=== PATIENT | male | born 1970 | race Caucasian/White ===

== ENCOUNTER 2016-10-08 15:40 | Inpatient (IN) | payer BC ==
[~2016-10-08] VITALS: Ht 190.5 cm; Wt 122.8 kg
[2016-10-08] MEDS ORDERED: SODIUM CHLORIDE 0.9% 1,000 ML ONE (17:03)
[2016-10-08 19:40] VITALS: BP_SYST 96; RESP 18; RESP 20; TEMP 97.5
[2016-10-08] MEDS ORDERED: ALPRAZOLAM 0.25 MG TAB PO PRN (22:25)
[2016-10-08] MEDS ORDERED: ONDANSETRON 4 MG VIAL IV PUSH PRN (22:25)
[2016-10-08] MEDS ORDERED: ACETAMINOPHEN 325 MG TAB PO PRN (22:25)
[2016-10-09] VITALS (7 sets, daily range): BP systolic 81–110; RESP 16–20; TEMP 97–98.8
[2016-10-09] MEDS: PANTOPRAZOLE 40 MG VIAL IV SCH ×2 (09:00→09:45)
[2016-10-09] MEDS: LEVOTHYROXINE 0.025 MG TAB NG SCH (09:44)
[2016-10-09] MEDS: LACTULOSE SOLN 20GM/30ML UDC PO SCH ×2 (09:45→19:50)
[2016-10-09] MEDS: SEVELAMER HCL 800 MG TAB PO SCH ×3 (09:45→17:44)
[2016-10-10 03:24] VITALS: BP_SYST 95; RESP 18; TEMP 98.2
[2016-10-10] MEDS: LEVOTHYROXINE 0.025 MG TAB NG SCH (05:41)
[2016-10-10 08:12] VITALS: BP_SYST 95; RESP 20; TEMP 97.2
[2016-10-10] MEDS: SEVELAMER HCL 800 MG TAB PO SCH ×3 (08:58→17:00)
[2016-10-10] MEDS: LACTULOSE SOLN 20GM/30ML UDC PO SCH ×2 (08:59→20:18)
[2016-10-10] MEDS: PANTOPRAZOLE 40 MG VIAL IV SCH (09:01)
[2016-10-10] MEDS ORDERED: SODIUM CHLORIDE 0.9% 1,000 ML IV SCH (10:00)
[2016-10-10 11:25] VITALS: BP_SYST 86; RESP 20; TEMP 98.2
[2016-10-10 16:18] VITALS: BP_SYST 90; RESP 20; TEMP 98.4
[2016-10-10 16:21] VITALS: BP_SYST 87; RESP 20; TEMP 98.3
[2016-10-10 18:41] VITALS: Ht 190.5 cm; Wt 122.8 kg
[2016-10-10 19:22] VITALS: BP_SYST 90; RESP 20; TEMP 97.4
[2016-10-10] MEDS ORDERED: hePARIN 1,000 UNITS/ML (PORCINE) 10 ML ONE (19:23)
[2016-10-11 00:12] VITALS: BP_SYST 92; RESP 18; TEMP 97.9
[2016-10-11 03:28] VITALS: BP_SYST 88; RESP 20; TEMP 98.4
[2016-10-11] MEDS: LEVOTHYROXINE 0.025 MG TAB NG SCH (04:43)
[2016-10-11 08:22] VITALS: BP_SYST 90; RESP 20; TEMP 98.2
[2016-10-11] MEDS: SEVELAMER HCL 800 MG TAB PO SCH ×3 (09:05→18:04)
[2016-10-11] MEDS: PANTOPRAZOLE 40 MG VIAL IV SCH (09:05)
[2016-10-11] MEDS: LACTULOSE SOLN 20GM/30ML UDC PO SCH ×2 (09:05→19:54)
[2016-10-11 11:23] VITALS: BP_SYST 90; RESP 20; TEMP 98.3
[2016-10-11] MEDS ORDERED: SODIUM CHLORIDE 0.9% 1,000 ML IV SCH (15:05)
[2016-10-11] MEDS ORDERED: MIDAZOLAM 2 MG/2 ML INJ IV ONE (15:05)
[2016-10-11] MEDS ORDERED: LIDOCAINE 1% BUFFERED 1 ML SYR INTRADERM PRN (15:05)
[2016-10-11] MEDS ORDERED: GLYCOPYRROLATE 0.2 MG/ML VIAL IV ONE (15:05)
[2016-10-11 15:29] VITALS: BP_SYST 91; RESP 20; TEMP 97.9
[2016-10-11 20:16] VITALS: BP_SYST 90; RESP 18; TEMP 98.2
[2016-10-12 00:09] VITALS: BP_SYST 88; RESP 18; TEMP 97.8
[2016-10-12] MEDS: LEVOTHYROXINE 0.025 MG TAB NG SCH (06:42)
[2016-10-12] MEDS: PANTOPRAZOLE 40 MG TAB PO SCH (06:42)
[2016-10-12 06:50] VITALS: BP_SYST 98; RESP 18; TEMP 98.1
[2016-10-12] MEDS ORDERED: MIDAZOLAM 2 MG/2 ML INJ ONE (06:51)
[2016-10-12] MEDS: SEVELAMER HCL 800 MG TAB PO SCH ×3 (08:00→17:32)
[2016-10-12] MEDS ORDERED: VANCOMYCIN 1,500 MG in SODIUM CHLORIDE 0.9% 250 ML IV ONE (10:10)
[2016-10-12 11:37] VITALS: BP_SYST 92; RESP 16; TEMP 98.3
[2016-10-12] MEDS: LACTULOSE SOLN 20GM/30ML UDC PO SCH ×2 (12:35→20:19)
[2016-10-12 14:52] VITALS: BP_SYST 96; RESP 18; TEMP 97.9
[2016-10-12 20:11] VITALS: BP_SYST 74; RESP 18; TEMP 98
[2016-10-13] VITALS (16 sets, daily range): BP systolic 80–103; RESP 16–20; TEMP 97.7–98.8
[2016-10-13] MEDS: LEVOTHYROXINE 0.025 MG TAB NG SCH (06:27)
[2016-10-13] MEDS: PANTOPRAZOLE 40 MG TAB PO SCH (06:27)
[2016-10-13] MEDS: SEVELAMER HCL 800 MG TAB PO SCH ×3 (08:00→18:16)
[2016-10-13] MEDS: LACTULOSE SOLN 20GM/30ML UDC PO SCH ×2 (14:38→21:15)
[2016-10-14 04:03] VITALS: BP_SYST 94; RESP 18; TEMP 98.2
[2016-10-14] MEDS: LEVOTHYROXINE 0.025 MG TAB NG SCH (06:27)
[2016-10-14] MEDS: PANTOPRAZOLE 40 MG TAB PO SCH (06:27)
[2016-10-14 07:38] VITALS: BP_SYST 95; RESP 16; TEMP 97.7
[2016-10-14] MEDS: LACTULOSE SOLN 20GM/30ML UDC PO SCH (08:04)
[2016-10-14] MEDS: SEVELAMER HCL 800 MG TAB PO SCH ×2 (08:04→12:40)
[2016-10-14 10:47] VITALS: BP_SYST 96; RESP 16; TEMP 98.4
[2016-10-14 14:20] VITALS: BP_SYST 96; RESP 16; TEMP 98.4
== END 2016-10-14 14:48 | disposition home or self-care (01) | DRG 377 ==
LOC: ENRESERVTM → CANRESERV → ENRESERVDT → ER 15:40 → EMR 18:18 → 4NT 19:31 → OBSVTOIN 10-09 14:03 → ENPENDDIS 10-09 14:03
PROVIDERS: ADMIT Internal Medicine Nephrology; ATTEND Internal Medicine Nephrology
PROC: 5A1D00Z (ICD-10-PCS; principal; 2016-10-13)
DX: K92.2 Gastrointestinal hemorrhage, unspecified (principal); N18.6 End stage renal disease; K74.60 Unspecified cirrhosis of liver; I12.0 Hypertensive chronic kidney disease with stage 5 chronic kidney disease or end stage renal disease; I85.00 Esophageal varices without bleeding; K64.8 Other hemorrhoids; Z99.2 Dependence on renal dialysis; E03.9 Hypothyroidism, unspecified; K21.9 Gastro-esophageal reflux disease without esophagitis; E78.5 Hyperlipidemia, unspecified; M10.9 Gout, unspecified; E21.3 Hyperparathyroidism, unspecified; Z83.3 Family history of diabetes mellitus; Z82.49 Family history of ischemic heart disease and other diseases of the circulatory system; D64.9 Anemia, unspecified
CPT/HCPCS: 36430; 71020; 80053; 81001; 82274; 83605; 85014; 85018; 85025; 85610; 85730; 86850; 86870; 86880; 86885; 86900; 86901; 86905; 86922; 86945; 86972; 93306; 93990; 96360